=== PATIENT | male | born 1960 | race African-American/Black ===

== ENCOUNTER → 2021-06-20 | Outpatient (CLI) | payer OTHER ==
[~2021-06-20] MED LIST: ACCUPRIL40 MG PO; CHILDREN'S ZYRT10 M1 PO; CIALIS20 MG PO; FLOMAX0.4 MG PO; LANTUS SUBQ; METFORMIN HCL500 M3 PO; NEURONTIN300 MG PO; NORVASC5 MG PO; NYSTATIN1 EA10 PO; TRULICITY1.5 MG/0.5 SQ
[2021-06-20 08:06] LABS: BASOPHILS 1.1 % (0.0-2.0); EOSINOPHILS 4.4 % (0.0-3.0); HEMATOCRIT 39.6 % (42.0-52.0); HEMOGLOBIN 12.7 gm/dL (14.0-18.0); LYMPHOCYTES 30.9 % (24.0-44.0); MCH 27.1 pg (26.0-34.0); MCHC 32.1 g/dL (28.0-37.0); MCV 84.4 fL (80.0-100.0); PLATELET COUNT 193 thou/uL (150-400); POLYS 57.6 % (36.0-66.0); RBC 4.69 mil/uL (4.50-6.00); RDW 16.5 % (10.5-14.5); WBC 5.3 thou/uL (4.0-11.0)
[2021-06-20 08:11] VITALS: BP 152/95
[2021-06-20 08:15] LABS: CALCIUM 8.4 mg/dL (8.5-10.1); CREATININE 0.9 mg/dL (0.7-1.3); POTASSIUM 3.9 mmol/L (3.5-5.1)
[2021-06-20 08:21] LABS: ALBUMIN 3.4 g/dL (3.4-5.0); TOTAL BILIRUBIN 0.4 mg/dL (0.2-1.0); TOTAL PROTEIN 6.3 g/dL (6.4-8.2)
[2021-06-20 08:50] LABS: APTT 27.1 Seconds (24.5-32.8); INR 0.99; PROTIME 10.8 Seconds (10.5-12.1)
--- NOTE | 2021-06-22 08:48 | P ---
[facility] [place] [address] PROCEDURE REPORT Name: [place] SANFORD Room #: REG DARINEL GarrettAlejandrinaReneAlejandrina#: [id number] Admission: 06/20/21 Attend Phys: Luis Nevarez MD Discharge: Date of : 56 Report #: [id number] THIS REPORT FOR: cc: ELICIA MORALES NO FAMILY PHYSICIAN or PCP Luis Nevarez MD ~ DATE OF SERVICE: 06/20/2021 PROCEDURES PERFORMED: 1. Supraventricular tachycardia ablation, CPT code 15472. 2. EP with left atrial pacing recording, CPT code 90249. 3. Program stimulation pacing after IV drug infusion, CPT code 35855. 4. A 3D mapping, CPT code 77810. PREOPERATIVE DIAGNOSIS: Supraventricular tachycardia. POSTOPERATIVE DIAGNOSIS: Typical atrioventricular hazel reentrant tachycardia. HISTORY: The patient is a 61-year-old with history of recurrent SVT that is adenosine sensitive. ANESTHESIA: The patient underwent MAC anesthesia with no anesthesia related complications. DESCRIPTION OF PROCEDURE: The patient underwent informed consent. He was then brought to the EP laboratory in a fasting and non-sedated state, prepped and draped in a standard fashion. I obtained access to the right femoral vein x 3, in the left femoral vein x 1 and in the right femoral vein, I placed an 8, 7 and 6-Arabic short sheath. In the left femoral vein, I placed a 6-Arabic short sheath. Under fluoroscopy, I placed 3 quadripolar catheters at the HRA, His and RV positions and a decapolar catheter into the coronary sinus for left atrial pacing and recording. A basic EP study was performed. At baseline, the patient was in sinus rhythm, sinus cycle length 800 milliseconds, MO interval 190 milliseconds, QRS duration 80 milliseconds, QT interval 450 milliseconds, AH interval 100 milliseconds, HV interval 48 milliseconds. Atrial burst pacing was performed and AV block was noted at 310 milliseconds. Atrial ERP was noted at 250 milliseconds and at a [address] cycle length. Next, ventricular pacing was performed and VA block was noted at 310 milliseconds. With this episode a VA block, the patient then went into SVT with a tachycardia cycle length of 320 milliseconds and a septal VA time of 35 milliseconds. Ventricular entrainment was performed and VA HV response was demonstrated multiple times. These findings were consistent with typical AV hazel reentrant tachycardia. I was able to easily induce SVT. 3D MAPPING AND ABLATION CATHETER: A 4 mm ablation catheter and a SR0 sheath were placed in the right atrium and 3D geometry of the right atrium was created [facility] [address] [place] [address] PROCEDURE REPORT Name: [place] SANFORD Room #: REG [facility]#: [id number] Admission: 06/20/21 Attend Phys: Luis Nevarez MD Discharge: Date of : 56 Report #: [id number] and then a slow pathway modification was performed at 50 chinchilla and 55 degrees. A total of 4 ablation lesions were performed and there were nice junctionals and no compromise to AV hazel conduction. POST-ABLATION FINDINGS: Post-ablation isoproterenol infusion was initiated at 1 mcg per minute. AV block was noted at 270 milliseconds. Atrial ERP was noted at 260 milliseconds at a [address] cycle length. VA block was noted to be less than 270 milliseconds and VA ERP was noted at 200 milliseconds at a [address] cycle length. No SVT was induced. Isoproterenol was turned off and AV block was noted at 270 milliseconds. Atrial ERP was noted at 230 milliseconds at a [address] cycle length and aggressive atrial and ventricular pacing maneuvers were performed and no SVT was induced. Post-ablation, the patient was in sinus rhythm with sinus cycle length 580 milliseconds, MO interval 160 milliseconds, QRS duration 80 milliseconds, QT interval 390 milliseconds, AH interval 80 milliseconds and HV interval 45 milliseconds. As such, catheters and sheaths were pulled. Hemostasis obtained and the patient awoke neurologically and hemodynamically intact. No complications. No significant bleeding. CONCLUSIONS: 1. Successful ablation of typical AV hazel reentrant tachycardia. 2. Normal SA hazel function. 3. Normal AV hazel function. 4. Normal His-Purkinje function. 5. No other inducible arrhythmias on or off isoproterenol. <ELECTRONICALLY SIGNED> By: Luis Nevarez MD 06/22/21 [id number] Luis Nevarez MD /nt
== END | disposition home or self-care (01) ==
LOC: CATH 06:33
PROVIDERS: ATTEND Internal Medicine Cardiovascular Disease
DX: I47.1 Supraventricular tachycardia (principal); I10 Essential (primary) hypertension; E78.5 Hyperlipidemia, unspecified; E11.9 Type 2 diabetes mellitus without complications; E05.90 Thyrotoxicosis, unspecified without thyrotoxic crisis or storm; Z98.890 Other specified postprocedural states; Z79.899 Other long term (current) drug therapy; Z87.891 Personal history of nicotine dependence; Z20.822 Contact with and (suspected) exposure to COVID-19; Z79.4 Long term (current) use of insulin
CPT/HCPCS: 62110; 62900; 70005